=== PATIENT | male | born 1960 | race African-American/Black ===

== ENCOUNTER 2017-05-31 09:03 | Observation (INO) | payer OTHER ==
[2017-05-25 13:44] LABS: BASOPHILS # (AUTO) 0.1 (0.0-0.1); BASOPHILS % 0.7 % (0.0-1.0); EOSINOPHILS # (AUTO) 0.3 (0.0-0.4); EOSINOPHILS % 3.6 % (0.0-6.0); HEMATOCRIT 46.1 % (38.2-49.6); HEMOGLOBIN 14.7 g/dL (14.0-18.0); LYMPHOCYTES # (AUTO) 2.4 (1.0-3.2); LYMPHOCYTES % 27.7 % (18.0-39.1); MEAN CORPUSCULAR HEMOGLOBIN 27.5 pg (28-32); MEAN CORPUSCULAR HGB CONC 31.9 g/dL (31-35); MEAN CORPUSCULAR VOLUME 86.3 fL (81-99); MONOCYTES # (AUTO) 0.4 (0.2-0.8); MONOCYTES % 4.3 % (4.4-11.3); NEUTROPHILS # (AUTO) 5.4 (2.1-6.9); NEUTROPHILS % 63.3 % (38.7-80.0); PLATELET COUNT 312 x10e3/uL (140-360); RED BLOOD COUNT 5.34 x10e6/uL (4.3-5.7); RED CELL DISTRIBUTION WIDTH 13.5 % (11.7-14.4)
[2017-05-25 14:02] LABS: ANION GAP 10.4 mmol/L (8-16); BLOOD UREA NITROGEN 16 mg/dL (7-26); BUN/CREATININE RATIO 17 (6-25); CALCIUM 9.1 mg/dL (8.4-10.2); CARBON DIOXIDE 29 mmol/L (22-29); CHLORIDE 105 mmol/L (98-107); CREATININE, SERUM 0.93 mg/dL (0.72-1.25); EST GLOMERULAR FILTRATION RATE > 60 ML/MIN (60-); GLUCOSE 101 mg/dL (74-118); POTASSIUM 4.4 mmol/L (3.5-5.1); SODIUM 140 mmol/L (136-145)
--- NOTE | 2017-05-25 16:33 | Diagnostic Imaging Report ---
PROCEDURE: Frontal and lateral views of the chest. COMPARISON: None. INDICATIONS: PREOPERATIVE CHEST XRAY FOR TURP FINDINGS: Lines/tubes: None. Lungs: The lungs are well inflated and clear. There is no evidence of pneumonia or pulmonary edema. Pleura: There is no pleural effusion or pneumothorax. Heart and mediastinum: The heart and the mediastinum are normal. Bones: No acute bony abnormality. IMPRESSION: 1. No acute cardiopulmonary disease. Dictated by: Musa Mckoy M.D. on 05/25/2017 at 16:42 Electronically approved by: Musa Mckoy M.D. on 05/25/2017 at 16:43
[~2017-05-31] VITALS: Ht 195.6 cm; Wt 143.8 kg
[~2017-05-31 09:03] MED LIST: AMOXICILLIN250 MG PO; BELLADONNA/OPIUM 60 MG SUPP PR ONE; CEFTRIAXONE SOD 1 GM VIAL ONE
--- OUTSIDE RECORDS SUMMARY | 2017-05-31 09:05 | XMS REPORT ---
[facility] Address Unknown Phone Unavailable Care Team Providers Care Scoop Filler Name Role Phone DIGNA MEYER Unavailable Unavailable Problems This patient has no known problems. Allergies, Adverse Reactions, Alerts This patient has no known allergies or adverse reactions. Medications This patient has no known medications. Results Test Description Test Time Test Comments Text Results Atomic Results Result Comments CHEST 2 VIEWS [place] [address] Patient Name: OG LEMUS MR #: [id number] : 1960 Age/Sex: 57/M Req #: [id number] Adm Physician: Ordered by: DIGNA MEYER MD Report #: [id number] Location: OR Room/Bed: Procedure: [id number] DX/CHEST 2 VIEWS Exam Date: 05/25/17 Exam Time: 1400 REPORT STATUS: Signed PROCEDURE: Frontal and lateral views of the chest. COMPARISON: None. INDICATIONS: PREOPERATIVE CHEST XRAY FOR TURP FINDINGS: Lines/tubes: None. Lungs: The lungs are well inflated and clear. There is no evidence of pneumonia or pulmonary edema. Pleura: There is no pleural effusion or pneumothorax. Heart and mediastinum: The heart and the mediastinum are normal. Bones: No acute bony abnormality. IMPRESSION: 1. No acute cardiopulmonary disease. Dictated by: Holly Mckoy M.D. on 05/25/2017 at 16:42 Electronically approved by: Holly Mckoy M.D. on 05/25/2017 at 16:43 Dictated By: HOLLY MCKOY MD [id number] Transcribed By: OLIVIA on 05/25/17 1643 COPY TO: DIGNA MEYER MD
[2017-05-31 10:50] VITALS: BP 125/96
[2017-05-31] MEDS: CIPROFLOXACIN 500 MG TAB PO SCH ×2 (11:13→21:06)
[2017-05-31] MEDS: HYDROCODONE/APAP 5MG-325MG TAB PO PRN ×3 (11:13→23:18)
[2017-05-31 11:35] VITALS: BP 130/96
[2017-05-31 11:38] VITALS: BP 130/96
[2017-05-31] MEDS ORDERED: DEXTROSE 5%/0.45% SOD CHL 1,000 ML IV ONE (12:00)
[2017-05-31 15:22] VITALS: BP 109/64
[2017-05-31] MEDS ORDERED: SEVOFLURANE INHAL SOLN 250 ML PEN BTL ONE (18:14)
[2017-05-31] MEDS ORDERED: PROPOFOL IV EMULSION 10 MG/ML 20 ML VIAL ONE (18:14)
[2017-05-31] MEDS ORDERED: GLYCOPYRROLATE INJ 1MG/ 5 ML SYR ONE (18:14)
[2017-05-31] MEDS ORDERED: ROCURONIUM BROMIDE 10 MG/ML 5ML VIAL ONE (18:14)
[2017-05-31] MEDS ORDERED: ONDANSETRON HCL INJ 2 MG/ML VIAL ONE (18:14)
[2017-05-31] MEDS ORDERED: NEOSTIGMINE 5 MG/5ML SYR ONE (18:14)
[2017-05-31] MEDS ORDERED: LIDOCAINE HCL 2% LOCAL INJ 5 ML SDV VIAL INJ ONE (18:14)
[2017-05-31] MEDS ORDERED: DEXAMETHASONE SOD PHOS INJ 4 MG/ML VIAL ONE (18:14)
[2017-05-31] MEDS ORDERED: FENTANYL CITRATE/PF 100MCG/2 ML INJ ONE (19:05)
[2017-05-31] MEDS ORDERED: MIDAZOLAM HCL 2 MG/2 ML VIAL ONE (19:05)
[2017-05-31 20:00] VITALS: BP 134/74
[2017-06-01] VITALS: BP 112/59
[2017-06-01 06:53] LABS: ANION GAP 12.1 mmol/L (8-16); BLOOD UREA NITROGEN 11 mg/dL (7-26); BUN/CREATININE RATIO 12 (6-25); CALCIUM 9.2 mg/dL (8.4-10.2); CARBON DIOXIDE 26 mmol/L (22-29); CHLORIDE 104 mmol/L (98-107); CREATININE, SERUM 0.89 mg/dL (0.72-1.25); EST GLOMERULAR FILTRATION RATE > 60 ML/MIN (60-); GLUCOSE 115 mg/dL (74-118); POTASSIUM 4.1 mmol/L (3.5-5.1); SODIUM 138 mmol/L (136-145)
[2017-06-01 08:03] VITALS: BP 112/59
[2017-06-01 08:30] VITALS: BP 112/61
[2017-06-01] MEDS: CIPROFLOXACIN 500 MG TAB PO SCH (08:51)
[2017-06-01 11:50] VITALS: BP 110/56
--- NOTE | 2017-06-07 09:57 | Operative Report ---
DATE OF PROCEDURE: May 31, 2017 PREOPERATIVE DIAGNOSIS: Recurrent urinary tract infections due to bladder outlet obstruction. POSTOPERATIVE DIAGNOSIS: Recurrent urinary tract infections due to bladder outlet obstruction. OPERATIVE PROCEDURE PERFORMED 1. Cystoscopy. 2. Transurethral resection of the prostate. ANESTHESIA: General anesthesia. ESTIMATED BLOOD LOSS: Minimal. INDICATIONS: Mr. Jose Ayoub is a 57-year-old gentleman with a history of recurrent culture-proven urinary tract infections due to bladder outlet obstruction. He now presents for definitive surgical management of this problem. PROCEDURE IN DETAIL: Patient was brought into the operating room and placed in supine position. After administration of general anesthesia, he was placed in dorsal lithotomy position and prepped and draped in the usual sterile fashion. Cystourethroscopy was performed using a 22-Sudanese cystoscope. The anterior and posterior urethra was noted to be normal except for widely patent urethral stricture disease at the bulb. The prostate revealed moderate elevation of the median bar, but significant lateral lobar hyperplasia. The bladder was entered without difficulty. Upon entrance into the bladder, there were grade 2 trabeculations appreciated. The ureteral orifices were in normal anatomical position and produced clear efflux. There were no mucosal lesions identified. The bladder was left full and the cystoscope and sheath were removed. A 26-Sudanese resectoscope sheath was then placed in a retrograde fashion and the [employer] resectoscope was used to perform the procedure. Beginning at the 1 o'clock position and proceeding in a clockwise fashion down to the 6 o'clock position, all the adenomatous tissue between the bladder neck and the verumontanum was removed down the level of the surgical capsule. Hemostasis was obtained using electrocautery device. A similar procedure was performed on the contralateral side in a counterclockwise fashion beginning at the 11 o'clock position and again ending at the 6 o'clock position. Again, hemostasis was obtained using electrocautery device. No gross penetration or perforation of the capsule was noted during the operation. The tissue on the roof and floor of the gland was resected free and an Hoonto evacuator was used to remove all chips. These were sent to pathology for microscopic analysis. Once adequate hemostasis was ensured, the bladder was left full and the cystoscope and the sheath were removed. Patient was noted to have a brisk urinary flow with coude. A 24-Sudanese 3-way coude catheter was then placed and the balloon inflated with 45 mL of sterile water. The urinary efflux was noted to be blood tinged. He was started on continuous bladder irrigation and returned to the supine position. Anesthesia was reversed and he was transferred to a bed and taken to the postanesthesia care unit in good condition. Of note, the needle and instrument counts were correct at the conclusion of the case. Job#: [id number] CYNTHIA
== END 2017-06-01 13:49 | disposition home or self-care (01) ==
LOC: OR 09:03 → IMCU 10:42
PROVIDERS: ADMIT Urology; ATTEND Urology
DX: N40.1 Benign prostatic hyperplasia with lower urinary tract symptoms (principal); N13.8 Other obstructive and reflux uropathy; N39.0 Urinary tract infection, site not specified; Z87.440 Personal history of urinary (tract) infections
CPT/HCPCS: 36415 ×2; 52630; 71020; 80048 ×2; 85025; 88305; 93005; G0378 ×2; J0696; J1100; J2001; J2250; J2405; 71046